=== PATIENT | female | born 1940 | race Caucasian/White ===

== ENCOUNTER → 2017-02-21 | Outpatient (CLI) | payer MEDICARE, BC ==
[~2017-02-21] MED LIST: ASPIRIN EC81 MG PO; CALCIUM600 MG PO; CITROMA DPS300 ML PO; CLARITIN DPS10 MG PO; DUONEB DPS3 ML IH; FISH OIL 1,2001 EACH PO; LOTENSIN DPS20 MG PO; MIRALAX PACKET17 GM PO; NORVASC5 MG PO; OMNICEF DPS300 MG PO; OXYCODONE-ACET1 EAC1 PO; PAROXETINE HCL10 MG PO; POTASSIUM CHLO20 ME2 PO; PRAVACHOL10 MG PO; PREDNISONE20 MG PO; PRILOSEC DPS20 MG PO; PROCHLORPERAZIN10 MG PO; TOPROL XL DPS50 MG PO; ULTRAM DPS50 MG PO; XANAX DPS0.25 MG PO
== END | disposition home or self-care (01) ==
LOC: RAD.S 09:38
DX: Z12.31 Encounter for screening mammogram for malignant neoplasm of breast (principal); R92.1 Mammographic calcification found on diagnostic imaging of breast

== ENCOUNTER 2017-03-07 11:20 | Inpatient (IN) | payer MEDICARE, BC ==
[~2017-03-07] VITALS: Ht 167.6 cm; Wt 65.3 kg
--- NOTE | ~2017-03-07 | ECH ---
Transthoracic Echocardiography Report (TTE) Demographics Patient Name DEEJAY MACHUCA Date of Study 03/07/2017 Patient Number [id number] Visit Number [id number] Date of 1940 Room Number Accession Number [id number] Gender Female Age 76 year(s) Referring Julienne Reed Body Builder Apprentice Abby Vincent [facility] Physician MD Mark Pa Physician Interpreting Andres Frye Machine Fitter Physician MD Supervising Ordering Physician Julienne Reed MD/MLP Nurse Stress Steward/Stewardess Smoke Room Conclusions Summary Technically adequate exam. The estimated left ventricular ejection fraction is 60-65%. Mild septal left ventricular hypertrophy. There is mild aortic regurgitation by color Doppler. Moderate size circumferential pericardial effusion. There is no echocardiographic evidence of cardiac tamponade. The ascending aorta appears mildly dilated. The maximum diameter measures 3.6 cm. Procedure Type of Study TTE procedure:Echo Complete SF. Procedure Date Date: 03/07/2017 Start: 01:35 PM Technical Quality: Adequate visualization Indications:Shortness of breath. Additional Indications:PCE on CT Appropriate Use Criteria: 9 Height: 66 inches Weight: 144 pounds BSA: 1.74 m Rhythm: Within normal limits HR: 87 bpm BP: 138/73 mmHg M-Mode/2D Measurements LV Diastolic Dimension: 4.16 cm LV Systolic Dimension: 2.4 cm LV Septum Diastolic: 1.1 cm LV PW Diastolic: 0.96 cm AO Root Dimension: 2.66 cm Cardiac Output: 5.23 l/min LA Dimension: 3.84 cm Cardiac Index: 3.01 l/min*m RV Diastolic Dimension: 2.89 cm LA volume index: 28 ml/m Post Pericard Effusion: 1.8 cm LVOT: 1.94 cm LVOT VTI: 20.36 cm RV Base: 3.2 cm LV Stroke volume: 60.15 ml RV Mid: 2.1 cm LV Stroke volume index: 34.57 ml/m RV Length: 5.4 cm Doppler Measurements AV Peak Velocity: 1.4 m/s MV Peak E-Wave: 0.63 m/s AV Peak Gradient: 7.84 mmHg MV Peak A-Wave: 0.84 m/s AV Mean Gradient: 4.28 mmHg MV E/A Ratio: 0.75 LVOT Peak Velocity: 0.92 m/s MV P1/2t: 66.9 msec AV Area (Continuity):2.17 cm AV P1/2t: 463.5 msec MV Deceleration Time: 198.9 msec MV Area (PHT): 3.29 cm PV Peak Velocity: 0.78 m/s PV Peak Gradient: 2.45 mmHg RA Area: 14.67 cm Findings Left Ventricle The left ventricle is normal in size . Mild septal left ventricular hypertrophy. Diastolic assessment reveals Grade I diastolic dysfunction. Right Ventricle Normal right ventricle structure and function. Left Atrium Normal left atrial size. Right Atrium Normal right atrial size. Mitral Valve Normal mitral valve structure and function. Aortic Valve Normal aortic valve structure and function. There is mild aortic regurgitation by color Doppler. Tricuspid Valve Normal tricuspid valve structure and function. Pulmonic Valve Normal pulmonic valve structure and function. Pericardial Effusion Small to moderate size circumferential pericardial effusion. There is no echocardiographic evidence of cardiac tamponade. Miscellaneous The ascending aorta appears mildly dilated. The maximum diameter measures 3.6 cm. Contractility Score LV regional wall motion:(0-Non visualized 1-Normal 2-Hypokinesis 3-Akinesis 4-Dyskinesis 5-Aneurysm) Signature
--- NOTE | 2017-03-10 08:02 | DS ---
ADMIT: 03/07/2017 RM/LOC: 423 [facility] MR#: [id number] [address] [address] DEEJAY MACHUCA [address] [place] [address] Discharge Summary SEX: F AGE: 76 : 1940 ADMISSION DATE: 03/07/2017 DISCHARGE DATE: 03/09/2017 CONSULTATIONS: Cardiology. FINAL DIAGNOSES: 1. Transudative pleural effusion. 2. Pericardial effusion. 3. Mild transaminitis. 4. Hypertension. REASON FOR ADMISSION: The patient is a 76-year-old female with persistent chest heaviness and fullness, tightness feeling. Found to have a moderate- sized pericardial effusion with associated pleural effusions on CT scan. Admitted for further evaluation. HOSPITAL COURSE: The patient was admitted. She underwent thoracentesis, diagnostic, on the right. Tolerated it well. About 200 mL removed. Final studies all pending. It looks transudative on initial studies. She had a pericardial effusion on CT. Echo was performed. Cardiology was consulted. She had a [id number] effusion without any tamponade on her echo. Cardiology recommended followup with possible pericardiocentesis for further evaluation in the future. The patient overall felt safe and stable for discharge to home. She felt improved. Her liver function tests had been improving. Arrangements were made for her to discharge home with followup with her primary care provider for further evaluation, possible pericardiocentesis in the future, possible expanded workup. Many studies still pending in the hospital, autoimmune and rheumatologic workup as well as infectious. Please see pending studies for list. DISCHARGE MEDICATIONS: Please see list for full details. She will essentially go home on her home medication list. She will follow up with her primary care provider in the next 3-5 days. Get a CMP at follow-up appointment. Humble Smallwood MD/ zohaib JOB #: [id number] CC: Janusz Pabon MD, Attending Physician Thierno Machuca MD, Family Physician
[2017-03-10] MEDS ORDERED: CALCIUM600 MG PO (15:25)
[2017-03-10] MEDS ORDERED: ASPIRIN EC81 MG PO (15:25)
[2017-03-10] MEDS ORDERED: LOTENSIN DPS20 MG PO (15:26)
[2017-03-10] MEDS ORDERED: TOPROL XL DPS50 MG PO (15:26)
[2017-03-10] MEDS ORDERED: PRAVACHOL10 MG PO (15:26)
[2017-03-10] MEDS ORDERED: FISH OIL 1,2001 EACH PO (15:26)
[2017-03-10] MEDS ORDERED: NORVASC5 MG PO (15:27)
--- NOTE | 2017-03-15 13:01 | HP ---
ADMIT: 03/07/2017 RM/LOC: 423 [facility] MR#: [id number] [address] [facility] [address] [place], [place] [address] DEEJAY MACHUCA [address] [place] [address] History and Physical SEX: F AGE: 76 : 1940 DATE OF SERVICE: 03/07/2017 CHIEF COMPLAINT: Shortness of breath, pleural effusions, and pericardial effusion. BRIEF HISTORY OF PRESENT ILLNESS: This is a 76-year-old female with hypertension and high cholesterol, who is sent to the ER today by her primary care physician after CT imaging revealed bilateral pleural effusions and a moderate pericardial effusion. She has been complaining of abdominal fullness and some gradual onset of shortness of breath for the last few weeks and saw her primary doctor, Dr. Machuca, who sent her for a stress test. She passed this without any problems, but did note some chest discomfort at the very end of the test. Her symptoms persisted. She saw Kerry Snyder at [facility], who ordered a CT of the chest and abdomen. That was performed today at [facility]. The results were sent to Kerry Snyder, and given the findings of pericardial and pleural effusions, she sent the patient to the ER for further workup. ER course revealed some elevated transaminases, and an echo was performed, which confirmed a moderate-sized pericardial effusion. She is being admitted for these new effusions and transaminitis. PAST MEDICAL HISTORY: Hyperlipidemia and hypertension. PAST SURGICAL HISTORY: Lumpectomy of the breast x2, hysterectomy, and tonsillectomy. FAMILY HISTORY: Noncontributory. SOCIAL HISTORY: The patient is . Lives at home with her . She has 2 grown kids. She endorses occasional alcohol use. Denies any tobacco use. MEDICATIONS: 1. Benazepril 20 mg daily. 2. Amlodipine 10 mg daily. 3. Metoprolol 50 mg at bedtime. 4. Pravastatin 10 mg at bedtime. 5. Calcium with vitamin D supplement. 6. 81 mg aspirin daily. 7. Fish oil tab daily. REVIEW OF SYSTEMS: The patient denies any fevers or chills. Does note 10- to 20-pound weight gain over the last month or 2. She denies any upper respiratory complaints. No cough. Does have some shortness of breath and decreased exercise tolerance. She does not have any abdominal pain, but notes some abdominal fullness and feels like her stomach tightness and pressure are pushing up on her lungs. Appetite is normal. No nausea, vomiting, diarrhea, or constipation. No bloody stools. She has some occasional swelling of her lower extremities and toes, but noted she has had increased swelling around her eyes in the morning. Denies any numbness, tingling, or weakness. ADMIT: 03/07/2017 RM/LOC: 423 [facility] MR#: [id number] [address] [address] [place] [address] History and Physical SEX: F AGE: 76 : 1940 PHYSICAL EXAMINATION: VITAL SIGNS: Blood pressure 132/64, respirations 19, heart rate 91, and O2 saturation 94% on room air. GENERAL: The patient is awake, alert, and oriented x3. No acute distress. Pleasant and conversational. HEENT: Normocephalic and atraumatic. EOMI. Mucous membranes are moist. NECK: She does have increased jugular venous pressure. CARDIOVASCULAR: Regular rhythm and rate. Heart tones are muffled. No murmur noted. PULMONARY: Clear to auscultation in upper urrutia. Diminished breath sounds at the bases. Dullness to percussion at bilateral bases. ABDOMEN: Mildly tender to palpation diffusely. No hepatojugular reflux noted. No hepatosplenomegaly palpated. Abdomen is slightly firm, but not distended. EXTREMITIES: Show 1+ edema in bilateral lower extremities. She does have some tanned skin, but no yellowing or icterus. NEUROLOGIC: Cranial nerves II through XII grossly intact. Sensation intact to light touch in upper and lower extremities bilaterally. Normal reflexes. LABS AND IMAGING: Outside CT that I do not have access to reportedly showed bilateral pleural effusions and pericardial effusion. EKG has some low voltage, but normal sinus rhythm, no ST changes. CBC shows a white count of 5.7, hemoglobin 11.8, and platelets of 224. PT and INR are normal. Lactic acid 0.9. CMP is normal except for an alkaline phosphatase elevated to 229, AST of 194, and ALT of 197. CK, CK-MB, and troponin are all normal. Procalcitonin is normal. Echo reveals EF of 60% to 65%, mild septal LVH, mild aortic regurg, and moderate-sized circumferential pericardial effusion with no evidence of tamponade. ASSESSMENT AND PLAN: 1. Pleural and pericardial effusions. These are of unknown etiology. Appreciate Cardiology's input. We will need to characterize the pleural fluid and ask IR to perform a thoracentesis with Gram stain, cytology glucose, protein, cell count, and LDH. 2. Elevated liver function tests. Question this as the possible source of effusions. We will draw acute hepatitis panel, sedimentation rate, CRP, LDH, and iron panel. Also, we will follow up with the right upper quadrant ultrasound. 3. Hypertension. This is controlled on her home medications. We will continue those and monitor during her hospitalization. James Alcazar MD Resident / Janusz Pabon MD / modl JOB #: [id number] CC: Janusz Pabon, Attending Physician ADMIT: 03/07/2017 RM/LOC: 423 [facility] MR#: [id number] [address] [address] DEEJAY MACHUCA [address] [place] [address] History and Physical SEX: F AGE: 76 : 1940 Thierno Machuca Family Physician
--- NOTE | 2017-03-15 18:56 | ER ---
ADMIT: 03/07/2017 RM/LOC: 423 [facility] MR#: [id number] [address] [facility] [address] [place], [place] [address] DEEJAY MACHUCA [facility] [place] [address] Emergency Room Report SEX: F AGE: 76 : 1940 DATE: 03/07/2017 ADDENDUM: This 76-year-old white female coming with shortness of breath. She has had this for probably a week. They keep working her up, they just do not exactly know what is going on. She had a CT that showed pericardial effusion, they had sent her over here. We got an echo which does show that, but not constricting. Her liver function tests are up. She is not septic. EKG, nothing acute. Chest x-ray, nothing acute. I spoke with Dr. Pabon. Since she continues to have shortness of breath and chest pain, we are going to admit her for continued rule out and eval. CONDITION ON DISCHARGE: Good. Janusz Robins MD/ [place] JOB #: [id number] CC: Janusz Pabon MD, Attending Physician Thierno Machuca MD, Family Physician
--- NOTE | 2017-04-04 15:00 | CO ---
ADMIT: 03/07/2017 RM/LOC: 423 [facility] MR#: [id number] [address] [facility] [address] [place], [place] [address] DEEJAY MACHUCA [address] [place] [address] Consultation SEX: F AGE: 76 : 1940 DATE OF CONSULTATION: 03/08/2017 ATTENDING PHYSICIAN: Janusz Pabon CONSULTING PHYSICIAN: Robb Campos MD CHIEF COMPLAINT: Pericardial effusion. HISTORY OF PRESENT ILLNESS: The patient first presented to her primary care doctor 4 weeks ago for an annual exam and endorsed intermittent chest heaviness. At this time, a Lexiscan stress test was ordered and was found to be normal. The patient then returned to her primary care physician a few days ago due to continued chest pressure and a CT scan was completed that visualized a large pericardial effusion as well as small bilateral pleural effusions and pelvic ascites. The patient reports that she walks 2 miles a day, but has noticed chest heaviness, both with exertion and at rest. Symptoms are not constant, but she has noticed they have been progressive in nature and that she also now has pleuritic chest pain only with deep inspiration. She states she has otherwise felt well without fevers, weight loss, cough, shortness of breath, nausea, vomiting, diarrhea, abdominal pain, or peripheral edema. She endorses occasional peripheral edema with weathers, especially warm or if she has been on her feet all day, but has not been a consistent issue for her. She denies any past medical history of cancer though has had 2 lumpectomies, which were both benign. She has had a mammogram within the last year which was without suspicions. She is a patient of Dr. Campos from [facility] as she has a history of symptomatic PACs which are well controlled with medical management. PAST MEDICAL HISTORY: Hypertension, asymptomatic PACs, and hyperlipidemia. PAST SURGICAL HISTORY: Lumpectomy of the breast x2, total hysterectomy due to abnormal bleeding, and tonsillectomy. FAMILY HISTORY: The patient reports that her father of a stroke attributed to carotid artery disease. She denies any family history of rheumatologic disease, thyroid disease. SOCIAL HISTORY: The patient is and lives at home with her . She denies any previous tobacco abuse. She drinks one glass of red wine daily. She continues to be active, walking 2 miles daily for exercise. MEDICATIONS: 1. Benazepril 20 mg p.o. daily. 2. Amlodipine 10 mg p.o. daily. 3. Metoprolol 50 mg p.o. at bedtime. 4. Pravastatin 10 mg p.o. at bedtime. 5. Calcium with vitamin D supplement. 6. Aspirin 81 mg daily. 7. Fish oil tab daily. ADMIT: 03/07/2017 RM/LOC: 423 [facility] MR#: [id number] [address] [place] [id number] [place] [address] Consultation SEX: F AGE: 76 : 1940 REVIEW OF SYSTEMS: GENERAL: Denies fatigue, fever, chills, sweats, rash, or weight loss. EYES: Denies double vision, blurred vision, cataracts, or glaucoma. ENT: Denies hearing loss or problems with nose, mouth or throat. PULMONARY: Denies cough, sputum production, asthma, emphysema or bronchitis. Denies snoring loudly, wakefulness at night, or fatigue upon awakening. GASTROINTESTINAL: Denies heartburn or difficulty swallowing. No change in bowel habits. Denies dark or bloody stools. No history of ulcers, hiatal hernia, or gallbladder or liver disease. GENITOURINARY: Denies dysuria, hematuria, nocturia, urinary tract infection, or kidney stones. Denies history of renal insufficiency or failure. MUSCULOSKELETAL: Denies history of arthritis or gout. Denies muscle or joint pains. ENDOCRINE: Denies history of thyroid dysfunction or diabetes. HEMATOLOGIC: Denies history of anemia, easy bruising, or cancer. NEUROLOGIC: Denies chronic headaches, dizziness, syncope, stroke, seizures or numbness or tingling. PSYCHIATRIC: Denies history of mental illness or feelings of depression. CHEST: She has a substernal chest heaviness, both with exertion and at rest and that she also endorses pleuritic chest pain. PHYSICAL EXAMINATION: VITAL SIGNS: T-max 99.6 Fahrenheit, pulse 83, blood pressure 124/72, respiratory rate 16, and SpO2 94% on room air. SKIN: [place], warm and dry. EYES: Sclerae clear. No xanthelasmas. ENT: Oral mucosa is pink and moist. No jugular venous distention or carotid bruits. CHEST: Respirations are even and unlabored. Lungs are clear to auscultation. Breath sounds are clear but distant. HEART: Regular rate and rhythm. Normal S1, S2. No murmurs, rubs or gallops. ABDOMEN: Soft and nontender. MUSCULOSKELETAL: Gait is normal. EXTREMITIES: Peripheral pulses palpable. No clubbing or cyanosis. Mild pretibial edema. PSYCHIATRIC: Alert and oriented. Mood and affect are appropriate. OBJECTIVE DATA: WBC 4.0, HGB 10.3, and PLT 193. Creatinine 0.8, AST 69, ALT 133, LDH 258, alkaline phosphatase 167. Albumin 3.1. Blood and urine cultures, no growth to date. CRP 4.68, ESR 45. Rheumatoid factor negative. JENNIFER pending. Echocardiogram with left ventricular fraction of 60%-65% with moderate-to- large sized circumferential pericardial effusion. No evidence of cardiac tamponade. Abdomen and pelvis CT with large pericardial effusion, small bilateral pleural effusions, small pelvic ascites, and nonspecific periportal edema. ASSESSMENT: 1. Pericardial effusion. ADMIT: 03/07/2017 RM/LOC: 423 [facility] MR#: [id number] [address] [address] DEEJAY MACHUCA [address] [place] [address] [place], [place] [address] Consultation SEX: F AGE: 76 : 1940 2. Elevated transaminases. 3. Pleural effusions. 4. History of PACs. PLAN: The patient is currently hemodynamically stable and does not have any signs of cardiac tamponade. Pericardial effusion was moderate on echocardiogram completed yesterday. I suspect there is a systemic process resulting in the pleural effusion and ascites. We will add thyroid studies and agree with checking rheumatologic markers. It is possible this is a viral etiology though the patient does not have pericarditis on EKG. If clinical condition changes, could have CT surgery do an elective pericardiocentesis though agree with thoracentesis today for characterization of fluid. Iman Sutton MD Resident / Robb Campos MD / [place] JOB #: [id number] CC: Janusz Pabon, Attending Physician Thierno Machuca, Family Physician
[2017-05-29] MEDS ORDERED: PROCHLORPERAZIN10 MG PO (14:51)
[2017-05-29] MEDS ORDERED: OXYCODONE-ACET1 EAC1 PO (14:52)
[2017-05-29] MEDS ORDERED: PRILOSEC DPS20 MG PO (14:53)
[2017-05-29] MEDS ORDERED: POTASSIUM CHLO20 ME2 PO (14:54)
[2017-05-29] MEDS ORDERED: PREDNISONE20 MG PO (14:54)
[2017-05-29] MEDS ORDERED: XANAX DPS0.25 MG PO (14:55)
[2017-05-29] MEDS ORDERED: ULTRAM DPS50 MG PO (14:55)
[2017-05-29] MEDS ORDERED: PAROXETINE HCL10 MG PO (14:55)
[2017-05-29] MEDS ORDERED: MIRALAX PACKET17 GM PO (14:57)
[2017-05-29] MEDS ORDERED: CLARITIN DPS10 MG PO (14:57)
[2017-05-29] MEDS ORDERED: DUONEB DPS3 ML IH (14:58)
[2017-05-29] MEDS ORDERED: OMNICEF DPS300 MG PO (14:58)
[2017-05-29] MEDS ORDERED: CITROMA DPS300 ML PO (14:58)
== END 2017-03-09 11:16 | disposition home or self-care (01) | DRG 315 ==
LOC: ER 11:20 → 4PCU 15:15
PROVIDERS: ADMIT Internal Medicine
PROC: 0W993ZX Drainage of Right Pleural Cavity, Percutaneous Approach, Diagnostic (ICD-10-PCS; principal; 2017-03-08)
DX: I31.3 Pericardial effusion (noninflammatory) (principal); J90 Pleural effusion, not elsewhere classified; R18.8 Other ascites; I10 Essential (primary) hypertension; E78.5 Hyperlipidemia, unspecified; Z79.82 Long term (current) use of aspirin; R74.0 Nonspecific elevation of levels of transaminase and lactic acid dehydrogenase [LDH]

== ENCOUNTER 2017-05-22 13:00 | Emergency (ER) | payer MEDICARE, BC ==
[~2017-05-22 13:00] MED LIST changes: -CITROMA DPS300 ML PO; -CLARITIN DPS10 MG PO; -DUONEB DPS3 ML IH; -MIRALAX PACKET17 GM PO; -OMNICEF DPS300 MG PO; -OXYCODONE-ACET1 EAC1 PO; -PAROXETINE HCL10 MG PO; -POTASSIUM CHLO20 ME2 PO; -PREDNISONE20 MG PO; -PRILOSEC DPS20 MG PO; -PROCHLORPERAZIN10 MG PO; -ULTRAM DPS50 MG PO; -XANAX DPS0.25 MG PO
[2017-05-29] MEDS ORDERED: PROCHLORPERAZIN10 MG PO (14:51)
[2017-05-29] MEDS ORDERED: OXYCODONE-ACET1 EAC1 PO (14:52)
[2017-05-29] MEDS ORDERED: PRILOSEC DPS20 MG PO (14:53)
[2017-05-29] MEDS ORDERED: PREDNISONE20 MG PO (14:54)
[2017-05-29] MEDS ORDERED: POTASSIUM CHLO20 ME2 PO (14:54)
[2017-05-29] MEDS ORDERED: XANAX DPS0.25 MG PO (14:55)
[2017-05-29] MEDS ORDERED: PAROXETINE HCL10 MG PO (14:55)
[2017-05-29] MEDS ORDERED: ULTRAM DPS50 MG PO (14:55)
[2017-05-29] MEDS ORDERED: CLARITIN DPS10 MG PO (14:57)
[2017-05-29] MEDS ORDERED: MIRALAX PACKET17 GM PO (14:57)
[2017-05-29] MEDS ORDERED: CITROMA DPS300 ML PO (14:58)
[2017-05-29] MEDS ORDERED: OMNICEF DPS300 MG PO (14:58)
[2017-05-29] MEDS ORDERED: DUONEB DPS3 ML IH (14:58)
== END 2017-05-22 14:29 | disposition home or self-care (01) ==
DX: F41.9 Anxiety disorder, unspecified (principal); C85.90 Non-Hodgkin lymphoma, unspecified, unspecified site; I10 Essential (primary) hypertension; Z88.8 Allergy status to other drugs, medicaments and biological substances; Z79.899 Other long term (current) drug therapy